=== PATIENT | male | born 1945 | race Caucasian/White ===

== ENCOUNTER 2021-01-16 15:15 | Emergency (ER) | payer OTHER ==
[~2021-01-16] VITALS: Ht 167.6 cm; Wt 74.8 kg
--- NOTE | 2021-01-16 15:15 | NUR ---
PT BIBRA 860 FROM HOME C/O SYNCOPAL EPISDE. PT DENIES INJURY. PT IS AAOX3, NOT IN RESPIRATORY DISTRESS, HOOKED TO FITNESS AND WELLNESS DIRECTOR, KEPT RESTED AND COMFORTABLE. WILL CONTINUE TO MONITOR.
--- NOTE | 2021-01-16 15:47 | NUR ---
PT SEEN AND EXAMINED BY .
--- NOTE | 2021-01-16 16:00 | NUR ---
PT IV LINE ESTABLISHED BLOOD DRAWN AND SENT TO LAB.
--- NOTE | 2021-01-16 16:05 | NUR ---
URINAL GIVEN BUT UNABLE TO PROVIDE URINE SPECIMEN THIS TIME.
--- NOTE | 2021-01-16 16:06 | NUR ---
ENVIRONMENT FRIENDLY LANDSCAPE DESIGNER AT BEDSIDE FOR XRAY.
[2021-01-16 16:10] LABS: BASOPHILS % (AUTO) 0.2 % (0.0-2.0); HEMATOCRIT 44 % (39-51); HEMOGLOBIN 14.7 g/dL (13.5-17.5); LYMPHOCYTES # (AUTO) 0.8 K/uL (0.8-4.8); MEAN CORPUSCULAR HGB CONC 33 g/dl (31.0-36.0); MEAN CORPUSCULAR VOLUME 84 fL (80-96); MONOCYTES # (AUTO) 0.7 K/uL (0.1-1.30); MONOCYTES % (AUTO) 7.8 % (2.0-12.0); NEUTROPHILS # (AUTO) 6.9 K/uL (1.8-8.9); PLATELET COUNT (AUTO) 243 K/uL (150-450); RED BLOOD CELL COUNT(AUTO) 5.23 MIL/uL (4.5-6.0); WHITE BLOOD COUNT (AUTO) 8.5 K/uL (4.3-11.0)
--- NOTE | 2021-01-16 16:16 | NUR ---
MOVE SHEET SUBMITTED
--- NOTE | 2021-01-16 16:18 | NUR ---
PT IS WHEELED TO CT SCAN VIA [facility].
[2021-01-16 16:34] LABS: MAGNESIUM 2.6 mg/dL (1.8-2.4)
[2021-01-16 18:09] LABS: ALANINE AMINOTRANSFERASE 48 U/L (12-78); ALBUMIN 3.9 g/dL (3.4-5.0); ALKALINE PHOSPHATASE 147 U/L (46-116); ASPARTATE AMINOTRANSFERASE 32 U/L (15-37); BILIRUBIN,DIRECT 0.2 mg/dL (0.0-0.2); BILIRUBIN,TOTAL 0.8 mg/dL (0.2-1.0); CALCIUM, SERUM 10.2 mg/dL (8.5-10.1); CARBON DIOXIDE 23 mmol/L (21-32); CHLORIDE 108 mmol/L (98-107); CREATININE 1.3 mg/dL (0.6-1.3); GLUCOSE 174 mg/dL (74-106); POTASSIUM 3.5 mmol/L (3.5-5.1); SODIUM SERUM 146 mmol/L (136-145); TOTAL PROTEIN, SERUM 7.8 g/dL (6.4-8.2); UREA NITROGEN, BLOOD 21 mg/dL (7-18)
--- NOTE | 2021-01-16 18:20 | NUR ---
[facility] CALLED [phone] DR. CHILD BACK.
--- NOTE | 2021-01-16 18:33 | NUR ---
DR. MC FROM [facility]ETER SPEAKING WITH DR. CHILD
[2021-01-16] MEDS ORDERED: IV NS 0.9% 500 ML BAG IV ONE (19:00)
--- NOTE | 2021-01-16 19:43 | NUR ---
URINE SPECIMEN COLLECTED AND SENT TO LAB
--- NOTE | 2021-01-16 20:42 | NUR ---
TRANSFER INFO FOR [facility] NUMBER FOR REPORT PRN ETA 21:30
--- NOTE | 2021-01-16 20:52 | NUR ---
ATTEMPTED TO GIVE REPORT AND WAS PLACED ON HOLD
--- NOTE | 2021-01-16 21:20 | NUR ---
REPORT GIVEN TO LATA AT [facility]
[2021-01-16 21:22] VITALS: BP 158/85
--- NOTE | 2021-01-16 21:29 | NUR ---
REPORT GIVEN TO [facility] AT BEDSIDE.
--- NOTE | 2021-01-16 21:35 | NUR ---
PT WAS TRANSFERRED TO [facility] IN STABLE CONDITION
== END 2021-01-16 21:57 | disposition short-term general hospital (02) ==
LOC: ER 15:17
DX: R55 Syncope and collapse (principal); E86.0 Dehydration; Z20.822 Contact with and (suspected) exposure to COVID-19; M48.02 Spinal stenosis, cervical region; E04.1 Nontoxic single thyroid nodule; I10 Essential (primary) hypertension; E11.9 Type 2 diabetes mellitus without complications
CPT/HCPCS: 36415; 70450; 71045; 72125; 80048; 80076; 80307; 80320; 82962; 83735; 83880; 84484; 85025; 85730; 87426; 93005; 93970; 96360; 99285; C9803; J7030; G0480